=== PATIENT | female | born 1960 | race Caucasian/White ===

== ENCOUNTER → 2017-12-26 09:27 | Outpatient (CLI) | payer MEDICAID, SELFPAY ==
--- NOTE | 2017-12-26 09:31 | MM_ITS ---
MM Dig screening mamm BI w/CAD CAD Screening COMPARISON: Digital mammograms 07/04/2016 and 07/05/2015 INDICATION: There is no personal or family history of breast cancer, there has been a previous biopsy left breast TECHNIQUE: Standard CC and MLO images were obtained. R2 CAD reviewed. FINDINGS: Moderate heterogenic fibroglandular densities are seen in central portions of both breasts and the findings are bilateral and symmetrical. There are few benign-appearing calcination is in each breast. There is no suspicious lesion and there are no suspicious microcalcifications. IMPRESSION: Stable exam no suspicious lesion seen BI-RADS Category: 2 Benign Finding(s) RECOMMENDED FOLLOW-UP: 1YR - 1 YEAR FOLLOW-UP (A letter has been sent to the patient regarding results of the study.)
== END ==
PROVIDERS: Family Provider Internal Medicine Adolescent Medicine; PCP Internal Medicine Adolescent Medicine; Visit Provider Internal Medicine Adolescent Medicine
DX: Z12.31 Encounter for screening mammogram for malignant neoplasm of breast (principal)
CPT/HCPCS: 77067

== ENCOUNTER → 2019-01-30 14:53 | Outpatient (CLI) | payer MEDICAID, SELFPAY ==
--- NOTE | 2019-01-30 14:57 | CT_ITS ---
CT lung screening EXAM: CT LUNG LOW DOSE WO CONTRAST HISTORY: 45 pack year smoking history, asymptomatic for lung cancer ITS.REASON: HX TOBACCO USE ORDERING PHYSICIAN: Jean Carlos Lang MD PATIENT AGE: 58 years COMPARISON: None TECHNIQUE: The exam was performed on a GE Light Speed [address] scanner using 2.90 mGy CTDI. A low dose helical CT CHEST was performed on a multi-detector scanner. All CT scans at the facility use one or more dose reduction, viz: automated exposure control, ma/kV adjustment per patient size (including targeted exams where dose is matched to indication, i.e. head), or iterative reconstruction technique. The LDCT was performed in a facility that meets the criteria for the screening program. Data regarding this exam was submitted to [employer] which is an approved registry. The order for this exam indicates that it came as a result of a lung cancer screening counseling shard decision-making visit that included all the elements required of such a visit including smoking cessation. The radiologist interpreting this exam meets the CMS criteria for the LDCT lung cancer screening program. The exam is reported using the Lung-RADS classification scale and reported to the ACR registry. NOTE: This study was performed for the specific purposes of lung cancer screening and is not an alternative to diagnostic chest CT. RADIATION DOSE: CTDI vol(CT dose Index-volume) = 2.90mG DLP (Dose Length Product) = 102.12 mGcm FINDINGS: COPD, centrilobular emphysema with scattered areas of fibrosis. There are coronary artery calcifications also noted. 4 mm noncalcified nodule right middle lobe fibrotic changes are also present in the right middle lobe. There is a 5 and a 4 mm nodular opacity in the superior segment of the right lower lobe axial image #49. Additional 5 mm nodule superior segment right lower lobe image #45. 4 mm nodule superior segment right lower lobe image #41. There are other scattered 2 to 3 mm nodules in the right upper lobe and right lower lobe which are nondisplaced cystic. On the left, there is an 8 mm solid appearing nodule in the left lower lobe anteriorly. This nodule is well-circumscribed, image #45. In addition, there is a slightly irregular 7 mm nodule in left lower lobe superiorly on image #33. There are some mild fibrotic changes adjacent to this nodule. There is an additional 4 mm noncalcified nodule superior segment left lower lobe on image #43. An additional 5 mm nodule is present in the left lower lobe posteriorly #56. IMPRESSION: 1. Lung RADS Category: 4 a, mildly suspicious, multiple noncalcified pulmonary nodules ranging in size from 2 mm to 8 mm[address] follow-up without and with contrast 2. Other findings: COPD, centrilobular emphysema, coronary artery calcifications RECOMMENDATIONS: CT chest without and with contrast in 3 months
--- NOTE | 2019-01-30 14:58 | MM_ITS ---
MM Dig screening mamm BI w/CAD CAD Screening COMPARISON: Digital mammograms with CAD 07/04/2016 and 12/26/2017 INDICATION: There is no personal or family history of breast cancer TECHNIQUE: Standard CC and MLO images were obtained. R2 CAD reviewed. FINDINGS: Moderate somewhat heterogenic fibroglandular densities are seen in the central portions of both breast and the findings are bilateral and symmetrical. There are few benign-appearing microcalcifications in each breast. There is no suspicious lesion and no suspicious microcalcifications. IMPRESSION: Moderate breast density with no suspicious lesion seen BI-RADS Category: 2 Benign Finding(s) RECOMMENDED FOLLOW-UP: 1YR - 1 YEAR FOLLOW-UP (A letter has been sent to the patient regarding results of the study.)
== END ==
PROVIDERS: PCP Internal Medicine Adolescent Medicine; Visit Provider Internal Medicine Adolescent Medicine
DX: Z12.31 Encounter for screening mammogram for malignant neoplasm of breast (principal); Z12.2 Encounter for screening for malignant neoplasm of respiratory organs; Z87.891 Personal history of nicotine dependence
CPT/HCPCS: 77067

== ENCOUNTER → 2019-06-12 13:13 | Outpatient (CLI) | payer MEDICAID, SELFPAY ==
--- NOTE | 2019-06-12 13:20 | CT_ITS ---
PROCEDURE: CT CHEST WO CON CLINICAL INDICATION: PULMONARY NODULES Follow-up pulmonary nodules the COMPARISON: LUNGSCREEN CT lung screening from 01/30/2019 TECHNIQUE: Axial images obtained with sagittal and coronal reformats. All CT scans at the facility use one or more dose reduction, viz: automated exposure control, ma/kV adjustment per patient size (including targeted exams where dose is matched to indication, i.e. head), or iterative reconstruction technique. FINDINGS: There are coronary artery calcifications. Normal heart size. No mediastinal or hilar mass or adenopathy. There are few small nodes in the axilla. Changes of COPD with scattered areas of scarring. Multiple noncalcified pulmonary nodules are once again noted as recently described with scattered areas of scarring. The largest nodule is in the left lower lobe at 8 mm not significantly changed. Other smaller nodules are present and unchanged. The there is a new parenchymal opacity in the left apex. This however is more consistent with an area of scarring as opposed to a pulmonary nodule but was not readily apparent on the previous study. No effusions or infiltrates. Upper abdominal images show a small hyperdense nodule involving the left kidney anteriorly and may be due to a hyperdense cyst. IMPRESSION: 1. No change in the multiple small noncalcified pulmonary nodules. No change in the largest nodule in the left lower lobe at 8 mm. 2. New small parenchymal opacity in the left apex which appears to be due to an area of scarring or atelectasis. 3. COPD with scattered areas of scarring. 4. Suggest continued six-month follow-up Dictated by: Gerber Delong MD 06/12/2019 16:12 Electronically signed by Gerber Delong MD in [place] 06/13/2019 10:11
== END ==
PROVIDERS: PCP Internal Medicine Adolescent Medicine; Visit Provider Internal Medicine Adolescent Medicine
DX: R91.1 Solitary pulmonary nodule (principal)
CPT/HCPCS: 71250